=== PATIENT | male | born 1955 | race Caucasian/White ===

== ENCOUNTER → 2016-11-24 | Outpatient (CLI) | payer BC, OTHER | END | disposition home or self-care (01) | LOC: C.RDSM 13:28 | PROVIDERS: ATTEND Physical Medicine & Rehabilitation Sports Medicine | DX: R52 Pain, unspecified (principal) ==

== ENCOUNTER → 2017-11-30 | Outpatient (CLI) | payer OTHER | END | disposition home or self-care (01) | LOC: C.RDSM 10:40 | PROVIDERS: ATTEND Physical Medicine & Rehabilitation Sports Medicine | DX: M94.351 Chondrolysis, right hip (principal); M16.0 Bilateral primary osteoarthritis of hip; M25.851 Other specified joint disorders, right hip ==